=== PATIENT | male | born 1930 | race Caucasian/White ===

== ENCOUNTER 2017-04-20 18:15 | Inpatient (IN) | payer MEDICARE, OTHER ==
[~2017-04-20] VITALS: Ht 172.7 cm; Wt 84.3 kg
[~2017-04-20 18:15] MED LIST: ATOR40TA69 PO; LEVO75TA4 PO; LORA10CA PO; METF500T4 PO; OLOD4MIS2 INHALATION
[2017-04-20 18:26] VITALS: BP 157/59; PULSE 61; RESP 18; O2SAT 95
[2017-04-20 18:42] LABS: BASOPHILS % (AUTO) 0.4 % (0-3); EOSINOPHILS % (AUTO) 3.4 % (0-5); MONOCYTES % (AUTO) 10.2 % (4-12); Mean Corpuscular Hemoglobin 31.7 pg (27.0-35.0); Mean Corpuscular Volume 98.6 fL (81-100); NEUTROPHILS % (AUTO) 63.2 % (40-74); Platelet Count 161 bil/L (150-400)
[2017-04-20 19:03] LABS: Magnesium 2.1 mg/dL (1.6-2.6)
--- NOTE | 2017-04-20 19:09 | ED.REPORT ---
HPI-Dizziness / Weakness Date of Service Apr 20, 2017 ED Provider: Reginald Brewster PA-C Deven is an 87-year-old male with a history of dementia per old records presenting with a chief complaint of leg weakness. He reports that he took a nap this afternoon when he awoke he was unable to move due to weakness. Works at that time he felt numb in his legs and unable to stand. He is able to move around his house using his arms to move between chairs. Admits cough. Denies headache, vision changes, unilateral neurologic changes, fever, abdominal pain, vomiting. Denies bowel/bladder dysfunction, saddle anesthesia. Patient is a somewhat difficult historian. Nursing Notes Stated Complaint: WEAKNESS Chief Complaint: General Complaint Nursing Notes Reviewed: Yes Allergies: Coded Allergies: No Known Allergies (Unverified , 11/27/15) Scheduled Atorvastatin Calcium (Atorvastatin Calcium) 40 Mg Tablet 40 MG PO DAILY Levothyroxine (Levothyroxine) 75 Mcg Tablet 75 MCG PO DAILY Loratadine (Claritin) 10 Mg Capsule 10 MG PO DAILY Metformin (Metformin) 500 Mg Tablet 500 MG PO BID Olodaterol HCl (Striverdi Respimat) 4 Gm Mist.inhal 2 PUFF INHALATION DAILY General Time Seen by MD: 18:39 Chief Complaint Generalized weakness Past Medical History Past Medical History Dementia Hypertension Hypothyroidism Malignant neoplasm, prostate High cholesterol COPD, 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 Head: Atraumatic, normocephalic. Eyes: No scleral icterus or injection. No discharge. Vision grossly intact. ENT: Voice clear, hearing grossly intact. Respiratory: Clinically evident wet cough. Regular rate and rhythm. Mildly small stinson. No respiratory distress. Speaks in complete sentences. Cardiovascular: Regular rate and rhythm, without murmur, gallop or rub. No pedal edema. Gastrointestinal: Abdomen flat and non-tender without guarding or rebound. Bowel sounds normoactive. Skin: Warm and dry. Neurological: Hip flexion, knee extension, ankle dorsiflexion and plantarflexion strength 5/5 B/L. Patellar and Achilles reflexes present and equal B/L. Sensation to sharp touch intact at medial leg, dorsal foot and lateral foot B/L. negative seated straight leg raise, negative seated cross straight leg raise. Psychological: Alert and oriented. Speech appropriate, linear and logical. Behavior appropriate. Initial Vital Signs Vital Signs (First) Date Time Temp Pulse Resp B/P Pulse Ox O2 Delivery O2 Flow Rate FiO2 04/20/17 18:26 37.0 61 18 157/59 95 Room Air Interpretation & Diagnostics Lab Results Interpretation Result Diagram: 04/21/17 0530 04/21/17 0530 Test 04/20/17 18:20 04/20/17 19:06 04/20/17 19:35 Magnesium Level 2.1mg/dL (1.6-2.6) Pro-B-Type Natriuretic Peptide 287.5pg/mL (0-486) Lactic Acid Level 1.0mmol/L (0.4-2.0) Troponin T < 0.010ug/L (0.0-0.011) Urine Color Yellow (YELLOW) Urine Appearance Clear (CLEAR,HAZY) Urine pH 6.5 (5.0-8.0) Urine Specific [place] 1.020 (1.003-1.035) Urine Protein Negativemg/dL (NEG,TRACE) Urine Glucose (UA) Negativemg/dL (NEGATIVE) Urine Ketones Negativemg/dL (NEGATIVE) Urine Occult Blood Negative (NEGATIVE) Urine Nitrite Negative (NEGATIVE) Urine Bilirubin Negative (NEGATIVE) Urine Urobilinogen Normalmg/dL (NORMAL) Urine Leukocyte Esterase Negative (NEGATIVE) Urine RBC 0-2/hpf (0-2) Urine WBC 0-5/hpf (0-5) Urine Epithelial Cells Occasional/hpf (NONE-MOD) Urine Crystals None seen (NONE SEEN) Urine Bacteria None/hpf (NONE-FEW) Urine Hyaline Casts None/lpf (NONE) Urine Granular Casts None seen (NONE SEEN) Urine Waxy Casts None seen (NONE SEEN) Urine Red Blood Cell Casts None seen (NONE SEEN) Urine White Blood Cell Casts None seen (NONE SEEN) Urine Mucus None seen (None Seen) Urine Trichomonas None seen (NONE SEEN) Urine Yeast None (NONE SEEN) Urinalysis Comment None Urine Culture Reflexed Not indicated X-Ray Chest Interpretation Chest Xray Interpretation: PROCEDURE: X-RAY CHEST ONE VIEW ([id number]) INDICATIONS: 87 year-old male with productive cough. IMPRESSION: Patchy bibasilar airspace opacities again noted, and may represent chronic pulmonary scarring versus recurrent aspiration or early bronchopneumonia. Interpretation / Wet Read by: Interpret - Radiologist Re-Eval/Medical Decision Consultation : Referral / Consult Name: Kamilah Aguirre DO Consulted With: Hospitalist Information Assurance Manager: Accepts admit Patient Discharge & Departure Impression: Primary Impression: Pneumonia Pneumonia type: due to unspecified organism Laterality: right Lung location : lower lobe of lung Qualified Code: J18.1 - Lobar pneumonia, unspecified organism Additional Impression: Generalized weakness Disposition: ADMITTED TO HOSPITAL Referrals: NOPCP (PCP) EDSupervising Provider for APC: Hiro Parra MD Attending Statement I personally examined this patient and review the clinical data. 87-year-old male who lives alone and has generalized weakness of acute onset and persistent in the emergency department in spite of IV hydration. Chest x-ray to my interpretation suggests pneumonia, the patient is hemodynamically stable; not thought to be septic. He has been given IV fluids with gentle hydration normal saline 500 mL and Levaquin 750 mg IV. He will be admitted to hospitalist service. CODE STATUS was discussed with the patient. DO NOT RESUSCITATE Reginald Brewster PA-C Apr 20, 2017 19:09 Hiro Parra MD Apr 20, 2017 21:48 (NEGATIVE) Urine Nitrite Negative (NEGATIVE) Urine Bilirubin Negative (NEGATIVE) Urine Urobilinogen Normalmg/dL (NORMAL) Urine Leukocyte Esterase Negative (NEGATIVE) Urine RBC 0-2/hpf (0-2) Urine WBC 0-5/hpf (0-5) Urine Epithelial Cells Occasional/hpf (NONE-MOD) Urine Crystals None seen (NONE SEEN) Urine Bacteria None/hpf (NONE-FEW) Urine Hyaline Casts None/lpf (NONE) Urine Granular Casts None seen (NONE SEEN) Urine Waxy Casts None seen (NONE SEEN) Urine Red Blood Cell Casts None seen (NONE SEEN) Urine White Blood Cell Casts None seen (NONE SEEN) Urine Mucus None seen (None Seen) Urine Trichomonas None seen (NONE SEEN) Urine Yeast None (NONE SEEN) Urinalysis Comment None Urine Culture Reflexed Not indicated X-Ray Chest Interpretation Chest Xray Interpretation: PROCEDURE: X-RAY CHEST ONE VIEW ([id number]) INDICATIONS: 87 year-old male with productive cough. IMPRESSION: Patchy bibasilar airspace opacities again noted, and may represent chronic pulmonary scarring versus recurrent aspiration or early bronchopneumonia. Interpretation / Wet Read by: Interpret - Radiologist Re-Eval/Medical Decision Consultation : Referral / Consult Name: Kamilah Aguirre DO Consulted With: Hospitalist Information Assurance Manager: Accepts admit Patient Discharge & Departure Impression: Primary Impression: Pneumonia Pneumonia type: due to unspecified organism Laterality: right Lung location : lower lobe of lung Qualified Code: J18.1 - Lobar pneumonia, unspecified organism Additional Impression: Generalized weakness Disposition: ADMITTED TO HOSPITAL Referrals: NOPCP (PCP) Attending Statement I personally examined this patient and review the clinical data. 87-year-old male who lives alone and has generalized weakness of acute onset and persistent in the emergency department in spite of IV hydration. Chest x-ray to my interpretation suggests pneumonia, the patient is hemodynamically stable; not thought to be septic. He has been given IV fluids with gentle hydration normal saline 500 mL and Levaquin 750 mg IV. He will be admitted to hospitalist service. CODE STATUS was discussed with the patient. DO NOT RESUSCITATE Reginald Brewster PA-C Apr 20, 2017 19:09 Hiro Parra MD Apr 20, 2017 21:48
--- NOTE | 2017-04-20 19:46 | DRSVH ---
PROCEDURE: X-RAY CHEST ONE VIEW ([id number]) INDICATIONS: 87 year-old male with productive cough. TECHNIQUE: One view of the chest was acquired. COMPARISON: [facility], CR, XR CHEST 1VW (PORTABLE), 11/27/2015, 13:14. FINDINGS: Surgical changes and devices: None. Lungs and pleura: No pleural effusions or pneumothorax. Patchy bibasilar airspace opacities are agai n noted. Mediastinum: Mediastinal contours appear normal. Heart size is normal. There is aortic atheroscler osis. Bones and chest wall: No suspicious bony lesions. Overlying soft tissues appear unremarkable. IMPRESSION: Patchy bibasilar airspace opacities again noted, and may represent chronic pulmonary scar ring versus recurrent aspiration or early bronchopneumonia. Dictated by: Juan David Mckeon M.D. on 04/20/2017 at 19:44 Approved by: Juan David Mckeon M.D. on 04/20/2017 at 19:45
[2017-04-20 19:54] LABS: APPEARANCE,URINE CLEAR (CLEAR,HAZY); COLOR,URINE YELLOW (YELLOW); OCCULT BLOOD,URINE NEGATIVE (NEGATIVE); PH,URINE 6.5 (5.0-8.0); UROBILINOGEN,URINE NORMAL (NORMAL)
[2017-04-20] MEDS ORDERED: levoFLOXacin Inj 750 MG in IV Premix 1 EACH IV ONE (21:45)
[2017-04-20] MEDS ORDERED: 0.9% Sodium Chloride 500 ML IV ONE (21:45)
[2017-04-20 22:12] VITALS: BP 143/62; PULSE 61; RESP 16; O2SAT 95
--- NOTE | 2017-04-20 22:41 | PCM.HPMED ---
Subjective Date of Service Apr 20, 2017 Primary Provider: Admitting Physician: Kamilah Aguirre DO Primary Care Physician: Maricruz Attending Physician: Kamilah Aguirre DO Admit Status: From the Emergency Department Chief Complaint: Weakness History of Present Illness: 87-year-old male with history of dementia, hypertension, hypothyroidism, hyperlipidemia, COPD, history of TIAs, and type II diabetes presents to the emergency department due to increasing weakness over the last couple of days with at least one fall. Patient states that his recent fall was in the kitchen and is able to pick himself back up using the counter but overall he feels weaker and less steady on his feet. Patient lives alone and has no access to emergency care should he fall. Patient also complains of a cough that is high for a number of years, but denies COPD. Along with a cough he complains chronic sinusitis, sputum production at worse in the morning, but denies fevers , chills, nausea, vomiting, chest pain, or shortness of breath. Patient also denies coughing or choking when eating. Patient did smoke for 30 years. 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 In the emergency room the patient's labs are relatively benign except for hyperglycemia of 185. Urine was unremarkable. No leukocytosis or anemia. Chest x-ray shows patchy bibasilar airspace opacities which are chronic from previous films. Review of Systems: Complete review of systems performed; pertinent positives and negatives per history of present illness, all other systems reviewed and are negative Allergies Coded Allergies: No Known Allergies (Unverified , 11/27/15) Home Medications Atorvastatin Calcium (Atorvastatin Calcium) 40 Mg Tablet 40 MG PO DAILY Levothyroxine (Levothyroxine) 75 Mcg Tablet 75 MCG PO DAILY Loratadine (Claritin) 10 Mg Capsule 10 MG PO DAILY Metformin (Metformin) 500 Mg Tablet 500 MG PO BID Olodaterol HCl (Striverdi Respimat) 4 Gm Mist.inhal 2 PUFF INHALATION DAILY PMH Dementia Hypertension Hypothyroidism Malignant neoplasm, prostate High cholesterol COPD, on oxygen at night TIA Type II diabetes mellitus Chronic right shoulder pain Surgical History Unable to recall Family History Did not know parents well enough to know medical history. Social History Hx Alcohol Use: No Hx Substance Use: No Hx Tobacco Use: Yes (He used to smoke 1-2 packs a day for 30 years and quit 40 years ago.) Smoking Status: Former Smoker Exam Vital Signs Vital Sign - Last Date Time Temp Pulse Resp B/P Pulse Ox O2 Delivery O2 Flow Rate FiO2 04/20/17 22:12 61 16 143/62 95 Room Air 04/20/17 18:26 37.0 Exam General: Pleasant age-appropriate male in no acute distress HEENT: PERRLA, EOMI, nonicteric, membranes moist Lymph: No lymphadenopathy Cardio: Regular rate and rhythm no murmurs rubs or gallops Respiratory: CTA bilaterally, no wheezes, no crackles Abdomen: Soft, positive bowel sounds, nontender, nondistended Extremities: No edema, 3/5 strength, sensation intact Psych: Appropriate mood and affect Neuro: CN II through XII grossly intact, sensation intact throughout Skin: No rash Lab and Diagnostics Result Diagram: 04/20/17181904/20/171819 X-Rays, CTs and MRIs Chest x-ray IMPRESSION: Patchy bibasilar airspace opacities again noted, and may represent chronic pulmonary scarring versus recurrent aspiration or early bronchopneumonia. Dictated by: Juan David Mckeon M.D. on 04/20/2017 at 19:44 12-lead ECG irregular rate 50s Assessment & Plan 87-year-old male with multiple comorbidities who presents emergency department due to increasing weakness and falls at home. Weakness and unsteady gait; present on admission; ongoing -Patient's getting progressively weaker likely second to age-related decline however infection not ruled out -Question whether the patient has a UTI, however his urine did not meet specifications for culture, was negative for nitrites and leukocyte esterase -Possible early pneumonia on CXR, received levofloxacin in ED, will continue ceftriaxone / azithromycin, procalcitonin pending -Orthostatics in a.m. -Patient on bedrest -NPO until swallow screen by nursing Chronic COPD; present on admission; ongoing -Not currently with COPD exacerbation -Patient's chronic cough that is stable with sputum production worse in the morning -Patient is supposed to be on home O2 at night, although unknown if he is compliant with this -Continue home inhalers Type II diabetes; present on admission; ongoing -Last A1c was 6.9 in 2016 -Home medication: Metformin -We will continue metformin Hypertension-not on home medications Hypothyroidism-continue levothyroxine Hyperlipidemia-continue atorvastin Disposition: Patient is being admitted to inpatient status with expected length of stay greater than two midnights due to to severity of presentation, duration of treatment, and risks of adverse events disposition DO NOT RESUSCITATE/DO NOT INTUBATE Pain Evaluation: Adequate Pain Control VTE Prophylaxis Indicated: Contraindicated Resuscitation Status: DNR/DNI:Do Not Resuscitate/Intubate Attending Statement The patient was seen and examined together with house staff on 04/20/2017 and I agree with the history, exam and plan as outlined in the note above. Zbigniew Mar DO Apr 20, 2017 22:41 Kamilah Aguirre DO Apr 21, 2017 02:56
[2017-04-20] MEDS ORDERED: Polyethylene Glycol (PEG) 17 Gm Powder PO PRN (22:45)
[2017-04-20] MEDS ORDERED: Ondansetron 2 mg/mL 2 mL Inj IVPUSH PRN (22:45)
[2017-04-20] MEDS ORDERED: Alum-Mag Hydrox-Simeth 30 mL Suspension PO PRN (22:45)
[2017-04-20 23:20] VITALS: BP 143/62; PULSE 61; RESP 16; O2SAT 95
[2017-04-20 23:35] VITALS: BP 172/88; PULSE 76; RESP 21; O2SAT 95
[2017-04-21] VITALS (7 sets, daily range): BP systolic 137–166; BP diastolic 75–82; PULSE 52–78; RESP 18–20; O2SAT 92–96
--- NOTE | 2017-04-21 00:01 | NUR ---
Arrival to floor Arrived to [facility] from ED for pneumonia and generalized weakness. Pt is poor historian, hx dementia, no family around per pt. A/O to self and place. No c/o pain/N/V. Per ED attempted PT and pt failed, moderately decreased weakness to bilateral lower extremities. Per pt, baseline is normal walking with no assistive devices. Per ED pt possibly stopped taking home medications. Bedrest over night, betsy on. Pt on CPOX and Tele. Uses urinal in bed, reports incontinence, brief on pt.
[2017-04-21] MEDS ORDERED: Heparin 5,000 Unit/mL Inj SUBQ SCH (00:30)
--- NOTE | 2017-04-21 01:57 | NUR ---
BP/UO Pt BP elevated:172/88, P 76. Pt has attempted to urinate multiple times with approx 50cc UO, bladder scanned, residual of 573. Night hospitalist notified, ok to perform in/out straight catheter. No new orders as of now for BP. Addendum: 04/21/17 at 0249 by NICCI LAYTON RN 14G coude catheter inserted in/out- using sterile technique. pt tolerated very well stating "that didnt hurt near as bad as I thought it would." 450cc clear, nicci urine out.
--- NOTE | 2017-04-21 06:30 | NUR ---
Diet/Fluids Notified Night Resident that fluids, diet, and insulin have not been ordered yet for this pt. Pt is diabetic. Has antibiotics scheduled for this morning. No new orders at this time.
[2017-04-21] MEDS ORDERED: Glucose 40% Oral Gel 15 Gm Tube PO PRN (07:05)
[2017-04-21] MEDS ORDERED: 0.9% Sodium Chloride 250 ML ONE (07:55)
[2017-04-21] MEDS: Insulin LISPRO 300 Unit/3 mL Inj SUBQ SCH ×4 (08:00→21:29)
[2017-04-21] MEDS: cefTRIAXone Inj 1,000 MG in Dextrose 5% Minibag Plus 50 ML IV SCH (08:03)
[2017-04-21] MEDS: Azithromycin Inj 500 MG in Dextrose 5% w/Vial Mate 250 ML IV SCH (09:08)
--- NOTE | 2017-04-21 09:48 | NUR ---
Evaluation completed. Please go to "Notes" then click on "Assessments and Notes" (bottom left corner of screen). Then select appropriate discipline tab on top of screen.
[2017-04-21 10:36] LABS: BASOPHILS % (AUTO) 0.4 % (0-3); EOSINOPHILS % (AUTO) 3.1 % (0-5); MONOCYTES % (AUTO) 11.8 % (4-12); Mean Corpuscular Hemoglobin 31.7 pg (27.0-35.0); Mean Corpuscular Volume 98.5 fL (81-100); NEUTROPHILS % (AUTO) 60.4 % (40-74); Platelet Count 155 bil/L (150-400)
[2017-04-21] MEDS: 0.9% Sodium Chloride 1,000 ML IV SCH (14:29)
--- NOTE | 2017-04-21 15:03 | PCM.PNMED ---
Subjective Date of Service Apr 21, 2017 Subjective Pt says SOB has improved, currently on RA. Has not tried to ambulate yet. Denies any pain. Exam Vital Signs Vital Sign - Last Date Time Temp Pulse Resp B/P Pulse Ox O2 Delivery O2 Flow Rate FiO2 04/21/17 14:19 78 142/81 04/21/17 14:12 36.6 18 92 Room Air Intake and Output 04/20/17 04/20/17 04/21/17 Cumulative From/Thru 15:00 23:00 07:00 04/20/17 18:26 - 04/21/17 06:11 Intake Total 0 ml 0 ml Output Total 525 ml 525 ml Balance -525 ml -525 ml Intake Oral 0 ml 0 ml Output Urine Total 525 ml 525 ml # Bowel Movements 0 0 Exam General: Pleasant age-appropriate male in no acute distress HEENT: PERRLA, EOMI, nonicteric, membranes moist Lymph: No lymphadenopathy Cardio: Regular rate and rhythm no murmurs rubs or gallops Respiratory: CTA bilaterally, no wheezes, no crackles Abdomen: Soft, positive bowel sounds, nontender, nondistended Extremities: No edema, 3/5 strength, sensation intact Psych: Appropriate mood and affect Neuro: CN II through XII grossly intact, sensation intact throughout Skin: No rash IVs and Medications Medications Reviewed: Medications were reviewed in detail Lab and Diagnostics Result Diagram: 04/21/17 0530 04/21/17 0530 X-Rays, CTs and MRIs Chest x-ray IMPRESSION: Patchy bibasilar airspace opacities again noted, and may represent chronic pulmonary scarring versus recurrent aspiration or early bronchopneumonia. Dictated by: Juan David Mckeon M.D. on 04/20/2017 at 19:44 12-lead ECG irregular rate 50s Assessment & Plan 87-year-old male with multiple comorbidities who presents emergency department due to increasing weakness and falls at home with Chest X-Ray suggestive of possible Pneumonia. Weakness and unsteady gait; present on admission; ongoing -Patient's getting progressively weaker likely second to age-related decline however infection not ruled out -Question whether the patient has a UTI, however his urine did not meet specifications for culture, was negative for nitrites and leukocyte esterase -Possible early pneumonia on CXR, received levofloxacin in ED, will continue ceftriaxone / azithromycin, procalcitonin- 0.06. -Orthostatics in a.m. -HEAD OF HISTORY to see pt. Will get Physical Therapy to evaluate. Chronic COPD; present on admission; ongoing -Not currently with COPD exacerbation -Patient's chronic cough that is stable with sputum production worse in the morning -Patient is supposed to be on home O2 at night, although unknown if he is compliant with this. -Continue home inhalers Type II diabetes; present on admission; ongoing -Last A1c was 6.9 in 2016, -Home medication: Metformin, held. -Started SSI, monitor fingersticks. Hypertension-not on home medications, consider adding Magdaleno Inhibitor given diabetes. Hypothyroidism-continue levothyroxine Hyperlipidemia-continue atorvastin Disposition: Patient changed to Observation status with expected length of stay less than two midnights due to to severity of presentation, duration of treatment, and risks of adverse events disposition VTE Mechanical Devices: Intermittant Pneumatic CD Resuscitation Status: DNR/DNI:Do Not Resuscitate/Intubate Chester Beltran MD Apr 21, 2017 15:03
--- NOTE | 2017-04-21 16:15 | NUR ---
Case management Contacted by Tri with insurance verification. Pt registered with VA insurance, per Tri, not service connected, to [place] will not pay. Requests I speak with pt and find out if he wants to be billed under VA which would not cover admit or Medicare. Per Tri has active Medicare part B. I spoke with Pt, he wishes to be registered under Medicare. Registration notified.
--- NOTE | 2017-04-21 17:13 | NUR ---
Neuro/Activity Pt able to follow commands. A&Ox3 but forgetful, and attention span is short during conversations. DORAN. Vocational Training Instructor strength equal. Pupils equal and reactive. No facial droop noted. Denies numbness and tingling in extremities. States that he gets dizzy and light headed when standing, orthos negative. Pt is bradycardic, MD aware. Pt is impulsive and forgetful of why he is here and that he staying the night. Martha alarm on. Notified for the need of a sitter for pt safety to reduce the risk of falls. Call light within reach. Teaching done on falls and call light use. Bed down and locked. Pt does not remember the name of the pharmacy he uses. Pt does not remember his medical history.
--- NOTE | 2017-04-21 19:26 | NUR ---
Family Pt's niece Roxanne called today. Stated he has Alzheimer and lives alone in a trailer. States her sister is his POA, and she will have his sister call to give more information about the pts history and med req.
--- NOTE | 2017-04-21 20:08 | NUR ---
Case Management D: Attempted to explain observation status, pt not wanting to sign HARDY. RN documenting pt as A&O x3, but does have hx of dementia. Pt has POA, but name and number is not in chart. Per RN, pt's POA is supposed to come in tomorrow. I will attempt to speak with her then, or call if phone number is obtained. I would like to explain observation status and HARDY to her, also the pt's decision to have admission billed under Medicare since would not be covered under VA since not service connected.
[2017-04-22] VITALS (8 sets, daily range): BP systolic 121–162; BP diastolic 66–82; PULSE 55–71; RESP 16–19; O2SAT 94–96
[2017-04-22] MEDS: 0.9% Sodium Chloride 1,000 ML IV SCH (00:22)
--- NOTE | 2017-04-22 04:53 | NUR ---
activity/behavior pt has been impulsive and unsteady on his feet. he has had a sitter at bedside all night. he has been a one person assist to the [facility]. he gets up to urinate frequently and only voids small amounts at a time. bladder was scanned at bedtime and had a total of 250cc of urine seen. pt went 200cc shortly thereafter. he has at times said sexually inappropriate things to female staff. his female drain tiler sitter had to be replaced with a male TESTER WAFER SUBSTRATE to deescalate the situation. he has been alert and oriented x2 this shift. he has at times needed reminding this is hospital. and he has needed frequent reminding of why he can't go home. pts nikirby called and said she would be coming in today to discuss discharge planning. care continues. Addendum: 04/22/17 at 0636 by REBEKAH SHIN RN MD notified that as morning as progressed pt has become increasingly confused. he knows who he is and that he is at a hospital. he is confused on why he is here and who the staff are. he has become more verbally abusive to staff as well. he is harder to redirect this morning. sitter still at bedside.
--- NOTE | 2017-04-22 07:17 | NUR ---
urinary retention pt complained of pain when trying to urinate. Post void residual was 650. nurse did in and out cath and 750cc of urine was drained. pt said he had immediate relief from his discomfort.
[2017-04-22] MEDS: Insulin LISPRO 300 Unit/3 mL Inj SUBQ SCH ×4 (08:00→21:10)
[2017-04-22] MEDS: cefTRIAXone Inj 1,000 MG in Dextrose 5% Minibag Plus 50 ML IV SCH (08:48)
[2017-04-22] MEDS ORDERED: Labetalol 5 mg/mL 4 mL Inj IVPUSH PRN (10:55)
--- NOTE | 2017-04-22 11:10 | PCM.PNMED ---
Subjective Date of Service Apr 22, 2017 Subjective PT was agitated overnight and needed sitter. Pt has been dizzy with ambulation. Exam Vital Signs Vital Sign - Last Date Time Temp Pulse Resp B/P Pulse Ox O2 Delivery O2 Flow Rate FiO2 04/22/17 10:31 71 04/22/17 08:41 36.2 18 162/79 94 Room Air Intake and Output 04/21/17 04/21/17 04/22/17 Cumulative From/Thru 15:00 23:00 07:00 04/20/17 18:26 - 04/22/17 05:33 Intake Total 1040 ml 800 ml 1840 ml Output Total 850 ml 475 ml 1850 ml Balance 190 ml 325 ml -10 ml Intake Oral 1040 ml 800 ml 1840 ml Output Urine Total 850 ml 475 ml 1850 ml # Voids 3 3 # Bowel Movements 1 1 Exam General: AOX2-3. NAD. HEENT: PERRLA, EOMI, nonicteric, membranes moist, Lymph: No lymphadenopathy Cardio: Regular rate and rhythm no murmurs rubs or gallops Respiratory: CTA bilaterally, no wheezes, no crackles Abdomen: Soft, positive bowel sounds, nontender, nondistended Extremities: No edema, 3/5 strength, sensation intact Psych: Appropriate mood and affect Neuro: CN II through XII grossly intact, sensation intact throughout, Gait is unsteady, no pronator drift. No DDK. +Nystagmus. IVs and Medications Medications Reviewed: Medications were reviewed in detail Lab and Diagnostics Result Diagram: 04/21/17 0530 04/21/17 0530 X-Rays, CTs and MRIs Chest x-ray IMPRESSION: Patchy bibasilar airspace opacities again noted, and may represent chronic pulmonary scarring versus recurrent aspiration or early bronchopneumonia. Dictated by: Juan David Mckeon M.D. on 04/20/2017 at 19:44 12-lead ECG irregular rate 50s Assessment & Plan 87-year-old male with multiple comorbidities who presents emergency department due to increasing weakness and falls at home with Chest X-Ray suggestive of possible Pneumonia. Weakness and unsteady gait; present on admission; ongoing -Patient's getting progressively weaker likely second to age-related decline however infection not ruled out. PT noted nystagmus during session. [place]- Hallpike negative. Clinical picture of Posterior circulation stroke, will need to order stroke pathway and CTA Head/Neck, Carotids, Echo. Give dose ASA. - Ortho Vitals were negative. -Started on Stroke Pathway. 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 -PT noted nystagmus during session, concern for CVA. Bilateral Infiltrates- POA, active. - per CXR, treating for Community Acquired Pneumonia. Afebrile, No leukocytosis. -received levofloxacin in ED, will continue ceftriaxone / azithromycin, procalcitonin- 0.06 -Day 3 Ceftriaxone, Azithromycin to complete course. Can restart if febrile. F/ u Cultures. Chronic COPD; present on admission; ongoing -Not currently with COPD exacerbation -Patient's chronic cough that is stable with sputum production worse in the morning -Patient is supposed to be on home O2 at night, although unknown if he is compliant with this. -Continue home inhalers Type II diabetes; present on admission; ongoing -Last A1c was 6.9 in 2016, -Home medication: Metformin, held. -Started SSI, monitor fingersticks. Hypertension-not on home medications, consider adding Magdaleno Inhibitor given diabetes. Hypothyroidism-continue levothyroxine Hyperlipidemia-continue atorvastin Disposition: Pt meets Inpatient Criteria as ordinally noted on admitting H&P. Expected stay >2 midnights due to to severity of presentation, duration of treatment, and risks of adverse events disposition VTE Mechanical Devices: Intermittant Pneumatic CD Resuscitation Status: DNR/DNI:Do Not Resuscitate/Intubate Chester Beltran MD Apr 22, 2017 11:10
[2017-04-22] MEDS: Azithromycin Inj 500 MG in Dextrose 5% w/Vial Mate 250 ML IV SCH (11:28)
--- NOTE | 2017-04-22 13:30 | NUR ---
Inpatient status effective today. SHILOH signed by pt and his DPOA Melany who is at bedside. I did explain to Melany about the change to Medicare benefits from previously [facility]. She is in agreement with change.
--- NOTE | 2017-04-22 17:32 | NUR ---
Social Work: Initial Assessment/Multi-Disciplinary Rounds D: EMR reviewed. Please see Initial Assessment linked to this note for more information. Pt is an 87 y/o [place] on [place]22 ([place] status changed) pneumonia, generalized weakness per H&P. Pt has a readmit risk score of 2. ORTIZ met with pt and family at bedside to conduct initial assessment. Pt not an accurate historian at this time. SW completed assessment with pt's niece/DPOA Melany Ludwig [phone] and brother Carlo Lerma. SW explained role and wrote phone number on white board. SW provided "Your Discharge Planning Checklist" and encouraged pt to contact SW for any discharge planning questions. Pt's insurance is Medicare and PCP is Danyel Ware MD. Pt gave verbal consent to [phone] for discharge planning. DPOA/advanced directive obtained and SW placed a copy in pt's chart. Pt does not own or use any DME. Pt PLOF with ADLs was independent but family has great concerns about how the pt has been living and believes pt is at a point that he needs total assistance with ADLs. Pt was living alone in a trailer with no running water. SW asked if family was aware of pt's living environment prior to being admitted to the hospital - family stated they had no idea how bad his situation had become and are advocating for pt not to return home. Pt has dementia at baseline and after family went to his trailer when pt arrived to hospital, realized that his functioning has declined. Family states it is absolutely not safe for pt to be home alone any longer and have great concerns regarding pt's renewed drivers license. Family stated pt's mentation has declined and pt should not be driving. SW discussed family options for pt's discharge. SW confirmed that pt will be discharged when medically stable. SW discussed pt's finances. Family states that pt does not have enough money to cover costs for alternative housing. SW presented family with the following options: 1) If MD recommends SNF and pt has medical necessity, Medicare could cover SNF costs but only if pt meets 3-day stay - which will be determined by medical necessity. 2) Pt can return to a family members home to live and hire 24/7 caregiver + HH if deemed medically necessary and pt is homebound (senior resource guide provided). 3) Family can work together to determine if family can pay for Memory Care facility or private pay SNF (if pt doesn't meet 3-day stay). ORTIZ informed family that SNF may not be an option. ORTIZ encouraged family to have a family meeting. Family reported to have 5 family members involved and SADIE Mosley confirmed she will rally the family together to discuss alternative options. Melany requested that ORTIZ email her a list of options for pt both short term and medical terminologist. ORTIZ confirmed SW will email options but will not disclose any person information related to the pt. SW also confirmed with family that pt will not be able to return to trailer without running water. ORTIZ confirmed with family that SW will discuss pt's driving with MD and request MD contact DMV regarding license. Family agreeable. Pt discussed in multidisciplinary rounds. Per multidisciplinary rounds, pt is not medically stable for discharge home today - A: Pt's capacity for self-care assessed: Per family reports, pt does not have the capacity for self-care at this time. Pt's mentation has declined and pt has been living in a trailer without running water, not bathing himself, and driving. ORTIZ discussed this with MD and MD will consult DMV regarding pt's license. P: SW to email SADIE Mosley ([email or web address]) with options for pt moving forward. No personal information about pt will be disseminated via email. ORTIZ will email options/resources. Family to have meeting regarding pt's care and finances. ORTIZ discussed that if pt is medically clear for discharge and does not leave hospital, pt will receive a HIN letter and privately pay for hospital costs. Family agreeable to discharge planning and are extremely supportive. Family willing to work together to form care plan if pt does not qualify for SNF covered by insurance. ORTIZ will continue to follow. MD notified of discussion with family. GABRIELA Rodas Addendum: 08/05/17 at 1751 by SARA VEGA Amended: Links added.
--- NOTE | 2017-04-22 18:27 | NUR ---
Confusion Pt. has been oriented to self and place today, and he is aware of why he is here. He does not know the date or year, and is forgetful at times. He was much more appropriate during day shift than at urologist physician, and he no longer needs a sitter at this time. [place] alarm in place.
[2017-04-23] VITALS (11 sets, daily range): BP systolic 131–178; BP diastolic 64–80; PULSE 55–82; RESP 16–20; O2SAT 92–99
--- NOTE | 2017-04-23 04:41 | NUR ---
activity/urinary retention/behavior pt behavior has been much more appropriate this shift then prior night. he is alert and oriented to self and place and understands why he is in the hospital. he read the stroke education book and discussed with nurse his concerns and questions. he has had a sitter for most of the night because he does impulsively get out of bed without calling for help and is unsteady on his feet. he has been pleasant and cooperative with sitter. at 2345 nurse did a post void residual and found 360cc. pt was given the opportunity to get back on the commode to try and urinate but said he was unable to. nurse used an in and out cath at that time and drained 300cc of urine. he has been resting comfortably since then and has urinated a total of 250cc since then on his own. nurse will bladder scan again at 0600. bed in low position, call light within reach. care continues. Addendum: 04/23/17 at 0611 by REBEKAH SHIN RN pt PVR this AM is 250. will not straight cath at this time. will continue to monitor.
[2017-04-23] MEDS: Insulin LISPRO 300 Unit/3 mL Inj SUBQ SCH ×4 (08:00→22:00)
--- NOTE | 2017-04-23 09:16 | DRSVH ---
PROCEDURE: CT ANGIO HEAD AND NECK (P) INDICATIONS: R/O Carotid Disease TECHNIQUE: Pre-contrast 4.5 mm thick sections acquired from the foramen magnum to the vertex. After the adminis tration of intravenous contrast, 1 mm thick sections acquired from the aortic arch through the [place]. Post-contrast 4.5 mm thick sections then re-acquired from the foramen magnum to the vert ex. 3-dimensional uodkmli-lwefjxcby-qdgjjpygvi (MIP) and/or volume rendering reformats were acquired of the central intracranial vasculature and neck separately. For radiation dose reduction, the foll owing was used: automated exposure control, adjustment of mA and/or kV according to patient size. COMPARISON: None. FINDINGS: Image quality: Good BRAIN: CSF spaces: Ventricles are normal in shape. There is generalized enlargement of the ventricles ciste rns and sulci from mild to moderate atrophic change. Basal cisterns are patent. No extra-axial flui d collections. Brain: No midline shift. No intracranial bleeds or masses. Nelson-white matter interface appears int act. Skull and face: Calvarium and facial bones appear intact, without suspicious lesions. Orbits appear normal. Sinuses: Sinuses and mastoids are clear. HEAD CT ANGIOGRAPHY: Anterior circulation: Intracranial internal carotid arteries are normal in size and flow. The flow within the paired anterior cerebral arteries is normal and symmetric. The flow within the middle cer ebral arteries is normal and symmetric. The anterior communicating artery is seen. No aneurysms are seen. Posterior circulation: Visualized portions of the vertebral arteries demonstrate atherosclerotic pia cification but with less than 50% diameter stenosis near their distal endsand join to form a normal a ppearing basilar artery. Flow within the posterior cerebral arteries is normal and symmetric. No an eurysms are seen. NECK CT ANGIOGRAPHY: Carotid system: The great vessels demonstrate a conventional anatomy as they arise from the aortic a rch. The origins of the common carotid arteries appear patent. Atherosclerotic plaquing is present a less than 50% diameter stenosis The common carotid arteries demonstrate normal courses. The distal common carotid arteries and origins of the internal and external carotid arteries show atheroscleroti c plaquing. The right is thought to be just less than 50% diameter stenosis in the left probably just more than 50% diameter stenosis at the bifurcation and origin of the internal carotid arteries. Beyo nd this the internal carotid arteries demonstrate normal calibers and courses. Posterior circulation: The origins of the vertebral arteries both appear widely patent. The more romo perior extracranial portions of both vertebral arteries also demonstrate normal courses and calibers. They join to form a normal appearing basilar artery. Soft tissues: Visualized neck soft tissues demonstrate no suspicious abnormalities. Bones: No suspicious bony lesions. Visualized cervical spine appears normally aligned. IMPRESSION: 1. Probably less than 50% diameter stenosis at the origin of the right internal carotid artery and li taylor greater than 50% diameter stenosis at the origin of the left internal carotid artery. Carotid ul trasound is suggested to evaluate for more accurate physiologic stenosis evaluation. 2. No significant stenosis greater than 50% is seen of the distal internal carotid arteries or any of the intracranial vessels. 3. Probably less than 50% diameter stenosis at the origin of both vertebral arteries. 4. Atrophic changes intracranially. No evidence for old or acute stroke or hemorrhagic change. Dictated by: Fernando Mireles M.D. on 04/23/2017 at 9:03 Approved by: Fernando Mireles M.D. on 04/23/2017 at 9:14
[2017-04-23] MEDS: Albuterol-Ipratropium 3 mL Inhalation Solution NEB PRN ×2 (09:27→21:13)
--- NOTE | 2017-04-23 14:17 | PCM.PNMED ---
Subjective Date of Service Apr 23, 2017 Exam Vital Signs Vital Sign - Last Date Time Temp Pulse Resp B/P Pulse Ox O2 Delivery O2 Flow Rate FiO2 04/23/17 12:45 36.8 77 18 178/67 92 Room Air Intake and Output 04/22/17 04/22/17 04/23/17 Cumulative From/Thru 15:00 23:00 07:00 04/20/17 18:26 - 04/23/17 06:05 Intake Total 1087 ml 300 ml 3227 ml Output Total 850 ml 900 ml 3600 ml Balance 237 ml -600 ml -373 ml Intake Oral 637 ml 300 ml 2777 ml IV Total 450 ml 450 ml Output Urine Total 850 ml 900 ml 3600 ml # Voids 3 # Bowel Movements 0 2 3 Exam General: AOX2-3. NAD. HEENT: PERRLA, EOMI, nonicteric, membranes moist, Lymph: No lymphadenopathy Cardio: Regular rate and rhythm no murmurs rubs or gallops Respiratory: CTA bilaterally, no wheezes, no crackles Abdomen: Soft, positive bowel sounds, nontender, nondistended Extremities: No edema, 3/5 strength, sensation intact Psych: Appropriate mood and affect Neuro: CN II through XII grossly intact, sensation intact throughout, Gait is unsteady, no pronator drift. IVs and Medications Medications Reviewed: Medications were reviewed in detail Lab and Diagnostics Result Diagram: 04/21/17 0530 04/21/17 0530 X-Rays, CTs and MRIs 04/23/[address] ANGIO HEAD AND NECK Carotid system: The great vessels demonstrate a conventional anatomy as they arise from the aortic arch. The origins of the common carotid arteries 1. Probably less than 50% diameter stenosis at the origin of the right internal carotid artery and likely greater than 50% diameter stenosis at the origin of the left internal carotid artery. Carotid ultrasound is suggested to evaluate for more accurate physiologic stenosis evaluation. 2. No significant stenosis greater than 50% is seen of the distal internal carotid arteries or any of the intracranial vessels. 3. Probably less than 50% diameter stenosis at the origin of both vertebral arteries. 4. Atrophic changes intracranially. No evidence for old or acute stroke or hemorrhagic [place] Chest x-ray IMPRESSION: Patchy bibasilar airspace opacities again noted, and may represent chronic pulmonary scarring versus recurrent aspiration or early bronchopneumonia. Dictated by: Juan David Mckeon M.D. on 04/20/2017 at 19:44 12-lead ECG irregular rate 50s Assessment & Plan 87-year-old male with multiple comorbidities who presents emergency department due to increasing weakness and falls at home with Chest X-Ray suggestive of possible Pneumonia. Weakness and unsteady gait; present on admission; ongoing - May be deconditioning. Clinical picture of Posterior circulation deficit. Consider CVA or Posterior Vertebrobasilar Insufficiency - PT noted nystagmus during session. [place]-Hallpike negative. Ortho Vitals were negative. - Started Stroke Pathway. - CTA Head/Neck- No acute infarct noted. Probably less than 50% diameter stenosis at the origin of the right internal carotid artery and likely greater than 50% diameter stenosis at the origin of the left internal carotid artery. No distal stenosis. -Carotids US- pending. -Echo- pending. -Started new med ASA. 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 -PT noted nystagmus during initial session. 04/23-PT recommending D/C to SNF with PT/OT services at this time but will continue to monitor with potential for home with HHPT if gait with AD improves over next few visits. Bilateral Infiltrates- POA, active. - per CXR, treating for Community Acquired Pneumonia. Afebrile, No leukocytosis. procalcitonin- 0.06 -received levofloxacin in ED, continued ceftriaxone / azithromycin. -Complete antibiotics 5 day course 04/24. Can continue if evidence of systemic infection. Chronic COPD; present on admission; ongoing -Not currently with COPD exacerbation -Patient's chronic cough that is stable with sputum production worse in the morning -Patient is supposed to be on home O2 at night, although unknown if he is compliant with this. -Continue home inhalers, started Duoneb prn. Type II diabetes; present on admission; ongoing -Last A1c was 6.9 in 2016, -Home medication: Metformin, held. -Started SSI, monitor fingersticks. Hypertension-not on home medications, consider adding Magdaleno Inhibitor given diabetes. Hypothyroidism-continue levothyroxine Hyperlipidemia-continue atorvastin Disposition: Pt meets Inpatient Criteria as ordinally noted on admitting H&P. Expected stay >2 midnights due to to severity of presentation, duration of treatment, and risks of adverse events disposition VTE Prophylaxis: Sub-Q Heparin (Unfractionated) VTE Mechanical Devices: Intermittant Pneumatic CD Resuscitation Status: DNR/DNI:Do Not Resuscitate/Intubate Chester Beltran MD Apr 23, 2017 14:17
--- NOTE | 2017-04-23 14:53 | DRSVH ---
[facility] [address] [place] [address] Echocardiogram Report Name: ANUSHA GREENBERG CStudy Date: 04/23/2017 Height: 68 in Hospital Exam Location: [facility] Weight: 187 lb Gender: Male BSA: 2.0 m2 : 1930 Age: 87 yrs BP: 151/64 mm Hg Reason For Study: R/O CVA Ordering Physician: HOSPITALIST [facility] Performed By: Melody Hunter Referring Physician: [facility] Interpretation Summary The study quality was technically difficult. The left ventricle is grossly normal size. Proximal septal thickening is noted. There is no significant left ventricular outflow tract obstruction. Left ventricular ejection fraction is estimated to be 70 +/- 5%. The right ventricle grossly appears normal in size with probable normal systolic function. The aortic valve is not well visualized. The aortic valve is moderately calcified. Leaflet mobility is moderate to severely reduced. The peak aortic velocity is 2.59 m/sec. The aortic valve mean gradient is 14 mmHg. Based on peak aortic valve velocity and mean gradient aortic stenosis is not critical, however if clinical suspicion is high for severe , consider FABY for better evaluation of aortic valve. There is no LV thrombus. Procedure: A two-dimensional transthoracic echocardiogram with color flow and Doppler was performed. The study quality was technically difficult. There is no prior echocardiogram noted for this patient. The bubble study componet of the test was unable to be completed due to patient discomfort and suboptimal echocardiographic imaging windows. The patient was in normal sinus rhythm during the exam. Left Ventricle: The left ventricle is grossly normal size. Proximal septal thickening is noted. There is no echo evidence for significant left ventricular outflow tract obstruction. There is no thrombus. Left ventricular ejection fraction is estimated to be 70 +/- 5%. Septal motion is consistent with conduction abnormality. E/A reversal with abnormal E/E' ratio(16.87). Right Ventricle: The right ventricle grossly appears normal in size with probable normal systolic function. Atria: The left atrium is moderately dilated. The right atrium is mildly dilated. The interatrial septum is intact with no evidence for an atrial septal defect. Mitral Valve: The mitral valve leaflets appear mildly thickened, but open well. There is moderate to severe mitral annular calcification. The mitral valve leaflets are mildly calcified. No significant mitral valve stenosis. There is trace mitral regurgitation. Aortic Valve: The aortic valve is not well visualized. The aortic valve is moderately calcified. Leaflet mobility is moderate to severely reduced. The peak aortic velocity is 2.59 m/sec. The aortic valve mean gradient is 14 mmHg. No aortic regurgitation is present. Tricuspid Valve: The tricuspid valve is not well visualized, but is grossly normal. There is trace tricuspid regurgitation. Pulmonary artery pressures cannot be estimated because of the lack of a measurable TR jet velocity. Pulmonic Valve: The pulmonic valve is not well visualized. Great Vessels: The aortic root is normal size. The ascending aorta could not be visualized. The aortic arch could not be visualized. The IVC is of normal diameter and collapses less than 50% with a sniff. This suggests a right atrial pressure of 8 mm Hg. Pericardium/ Pleura There is an anterior echo-free space consistent with a fat pad. There is no pericardial effusion. There is no pleural effusion. MMode/2D Measurements & Calculations RA long axis: 4.9 cm LVOT diam: 2.2 cm LA A2 area: 25.8 cm LA A4 area: 25.4 cm RA area: 12.0 cm LA length (vol): 6.3 cm RA vol: 25.1 ml LA vol: 88.6 ml RA : 12.6 ml/m2 LA vol index: 44.6 ml/m IVC diam: 1.8 cm Doppler Measurements & Calculations Ao V2 max MV E max amol MV E/A: 0.98 MV dec time : 259.4 cm/sec : 89.0 cm/sec Med Peak E' Amol : 0.24 sec Ao max PG MV A max amol : 26.9 mmHg : 91.1 cm/sec E/E' med: 19.3 Ao mean PG Lat Peak E' Amol : 14.0 mmHg LVOT Max Amol E/E' lat: 15.0 : 86.7 cm/sec E/e' average: 17.1 LEXIE(I,D): 1.3 cm sev ratio: 0.35 Ao V2 mean LV V1 max PG LEXIE indexed to BSA : 167.5 cm/sec (cm^2/m^2): 0.64 Ao V2 VTI: 55.9 cm LV V1 VTI: 19.5 cm LEXIE(V,D): 1.2 cm2 Reading Physician:FIORELLA
[2017-04-23] MEDS: Heparin 5,000 Unit/mL Inj SUBQ SCH (15:46)
--- NOTE | 2017-04-23 18:17 | NUR ---
Urination Pt alert and oriented to self and place only. Urination hard to assess today, due to increased incontinence today, nursing will continue to monitor. Pt had 3 episodes of incontinence, bladder scan performed and obtained 150ml. Pt anxious this afternoon after discussion with MD regarding drivers license being revoked. Discussed with pt that he will have other resources available to him, which eased some of his anxiety.
[2017-04-24] VITALS (12 sets, daily range): BP systolic 122–171; BP diastolic 52–76; PULSE 54–70; RESP 18–20; O2SAT 92–99
[2017-04-24] MEDS: Heparin 5,000 Unit/mL Inj SUBQ SCH ×3 (01:27→16:51)
--- NOTE | 2017-04-24 06:32 | NUR ---
Incontinence/ Bladder Scan Pt incontinent through shift- briefs weighed to calculate output. Pt able to void 100 at 0630, bladder scan for 418 and straight cath resulted in 220 out. Pt states sensation to void he just 'cannot go any more'. He discussed his amish/marriage plans with staff and made inappropriate jokes about his nickname. No physical interactions were inappropriate, and he was reminded to be respectful of staff by the charge nurse. Pt states he needs to get out of here and get to [facility] so that he can get better. No Chest pain, some SOB this shift and given PRN breathing treatment by RT. Upper airway is audible ronchi, experitory wheezes throughout.
[2017-04-24] MEDS: Insulin LISPRO 300 Unit/3 mL Inj SUBQ SCH ×4 (07:00→22:00)
[2017-04-24] MEDS: Albuterol-Ipratropium 3 mL Inhalation Solution NEB PRN ×2 (07:42→15:55)
[2017-04-24 08:40] LABS: BASOPHILS % (AUTO) 0.5 % (0-3); EOSINOPHILS % (AUTO) 5.1 % (0-5); MONOCYTES % (AUTO) 9.8 % (4-12); Mean Corpuscular Hemoglobin 32.2 pg (27.0-35.0); NEUTROPHILS % (AUTO) 60.3 % (40-74); Platelet Count 147 bil/L (150-400)
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
--- NOTE | 2017-04-24 16:22 | PCM.PNMED ---
Subjective Date of Service Apr 24, 2017 Subjective Denies any new complaints. 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 He says Dr. Beltran told him he was planning to revoke his driving privilege! Exam Vital Signs Vital Sign - Last Date Time Temp Pulse Resp B/P Pulse Ox O2 Delivery O2 Flow Rate FiO2 04/24/17 15:55 64 20 94 Room Air 04/24/17 12:47 36.4 150/70 Intake and Output 04/23/17 04/23/17 04/24/17 Cumulative From/Thru 15:00 23:00 07:00 04/20/17 18:26 - 04/24/17 06:57 Intake Total 802 ml 320 ml 4349 ml Output Total 400 ml 851 ml 4851 ml Balance 402 ml -531 ml -502 ml Intake Oral 802 ml 320 ml 3899 ml IV Total 450 ml Output Urine Total 400 ml 851 ml 4851 ml # Voids 6 6 15 # Bowel Movements 0 0 3 General: Alert, Oriented X3, Cooperative, No Acute Distress Head: Normal Eyes: Scleral Anicteric Nose: Mucous Membr Moist/[place] Mouth: Mucous Membr Moist/[place] Neck: Supple Chest & Lungs: Chest Wall Normal, Clear to auscultation & percussion Cardiovascular: Regular Rate/Rhythm Pulses: NL carotid, radial, femoral, DP, PT Abdomen: Non-tender, Non-distended, Normoactive bowel tones, Soft Extremities: No cyanosis/clubbing/edma bilat Neurological: Grossly Neurologically Intact, Normal Speech IVs and Medications Medications Reviewed: Medications were reviewed in detail Lab and Diagnostics Result Diagram: 04/24/1782404/24/17 0825 X-Rays, CTs and MRIs 04/23/[address] ANGIO HEAD AND NECK Carotid system: The great vessels demonstrate a conventional anatomy as they arise from the aortic arch. The origins of the common carotid arteries 1. Probably less than 50% diameter stenosis at the origin of the right internal carotid artery and likely greater than 50% diameter stenosis at the origin of the left internal carotid artery. Carotid ultrasound is suggested to evaluate for more accurate physiologic stenosis evaluation. 2. No significant stenosis greater than 50% is seen of the distal internal carotid arteries or any of the intracranial vessels. 3. Probably less than 50% diameter stenosis at the origin of both vertebral arteries. 4. Atrophic changes intracranially. No evidence for old or acute stroke or hemorrhagic dumont Chest x-ray IMPRESSION: Patchy bibasilar airspace opacities again noted, and may represent chronic pulmonary scarring versus recurrent aspiration or early bronchopneumonia. Dictated by: Juan David Mckeon M.D. on 04/20/2017 at 19:44 12-lead ECG irregular rate 50s Assessment & Plan 87-year-old male with history of Hypertension, Hypothyroidism, prostate neoplasm , COPD, on oxygen at night, TIA, Type II diabetes mellitus presents due to increasing weakness and falls at home # Acute generalized weakness and unsteady gait; present on admission. Improving - CTA Head/Neck- No acute infarct or significant stenosis noted - Neuro exam today is fairly non-focal - Not clear to me why CTA was chosen instead of MRI - Echo unremarkable as noted above - Started new med ASA. - APPLICATION DEVELOPMENT TEAM LEAD- noted dysphagia, rec pureed for now, will follow up. - PT noted nystagmus during initial session. Followup with recs - Consider MRI brain if unsteady gait persist # Acute community acquired pneumonia per earlier notes, present on admission. - Clinically highly doubt bacterial pneumonia given no fever/chills, leukocytosis, and with negative procalcitonin - Received levofloxacin in ED and continued ceftriaxone / azithromycin. - Stop all antibiotics and followup # Chronic COPD with possible acute exacerbation, present on admission; ongoing - Patient is supposed to be on home O2 at night, although unknown if he is compliant with this. - Continue home inhalers - Start Nebs # Type II diabetes; present on admission; ongoing - HgA1C 6.7 - Home medication: Metformin, held. - Continue ISS, monitor fingersticks. # History of Hypertension. Ongoing and poorly controlled - Not on home medications - Start low dose Lisinopril # Chronic Hypothyroidism - Continue levothyroxine # Hyperlipidemia - Continue Atorvastin Dispo: Likely SNF in 1-2 days VTE Prophylaxis: Sub-Q Heparin (Unfractionated) VTE Mechanical Devices: Intermittant Pneumatic CD Resuscitation Status: DNR/DNI:Do Not Resuscitate/Intubate Yon Reagan Apr 24, 2017 16:22
--- NOTE | 2017-04-24 16:44 | NUR ---
Social Work: Continued Discharge Planning D: EMR reviewed. Pt is on day 4 of hospitalization. SW received MD order for SNF placement. SW to follow-up with pt's DPOA and provide choice list. Please see prior SW notes. Pt admitted inpt on 04/22 and will meet 3-day inpt stay for Medicare coverage. Pt anticipated to discharge 1-2 days. A: Pt for whom a SNF is medically necessary P: SW to follow-up with pt's DPOA and provide SNF choice list. SW to make referral to SNF once choice determined. SW will continue to follow. GABRIELA Rodas
--- NOTE | 2017-04-24 19:13 | NUR ---
UOP Post void residuals done this shift with highest amount being 234ml. Pt did c/o sob after working with PT. Slight unsteady gait. RT called for treatment. paged regarding weight gain of 5kg and unsteady gait Orders for MRI with contrast of head d/t unsteady gait. MD ordered to restart thyroid med and bp med tomorrow AM. Also ordered for home respiratory med. Pt remains impulsive with betsy in place. Usually is already on the BSC by the time you get to the bedalarm. Care conts
[2017-04-24] MEDS: Arformoterol 15 mCg/2 mL Inhalation Solution NEB SCH (22:32)
--- NOTE | 2017-04-24 23:17 | NUR ---
Off unit for MRI
[2017-04-25] VITALS (9 sets, daily range): BP systolic 127–189; BP diastolic 70–79; PULSE 61–90; RESP 18–20; O2SAT 91–95
--- NOTE | 2017-04-25 00:16 | NUR ---
Return to OSC from MRI
[2017-04-25] MEDS: Heparin 5,000 Unit/mL Inj SUBQ SCH ×3 (00:44→15:52)
--- NOTE | 2017-04-25 02:20 | NUR ---
MRI results / activity Radiology reports MRI results of R acute lacunar infarct at 0200, NOC hospitalist paged. Pt has been awake all of this shift, impulsive to bedside commode, looking for papers in room, coughing and blowing nose. Wearing CPOX saturation maintained >88%, coughing and increase in mucus after HS breathing treatment. Voiding frequently, Post void residual have been 310, 210. Care continues
--- NOTE | 2017-04-25 05:11 | NUR ---
PVR Pt is alert and responsive with baseline confusion and able to make needs known. Denies pain, resp distress and/or SOB. 95% on RA at this current and sleeping soundly. Increased impulsiveness and urinary frequency through this shift. Able to void, LN helped with toileting and bladder scan maintained under 310cc so far. No In and out cath. Will continue to monitor.
[2017-04-25] MEDS: Insulin LISPRO 300 Unit/3 mL Inj SUBQ SCH ×4 (07:55→22:00)
--- NOTE | 2017-04-25 08:56 | DRSVH ---
PROCEDURE: MRI BRAIN WITHOUT CONTRAST ([id number]) INDICATIONS: unsteady gait TECHNIQUE: Non-contrast axial T1 spin echo, axial T2 fast spin echo, sagittal and axial FLAIR, coronal T2 fast s pin echo, axial gradient echo, axial diffusion and ADC through the brain. COMPARISON: None. FINDINGS: Image quality: Good CSF spaces: Ventricles appear symmetric in size and shape. Basal cisterns are patent. No extra-axi al fluid collections. Brain: No intracranial bleeds or mass effects. There is cerebral volume loss for age. There are pe riventricular and deep white matter chronic small vessel ischemic changes. There is a punctate, appro ximately 5 mm area of abnormal signal bright on diffusion and dark on ADC and showing minimal flair a nd T2 consistent with a small subacute ischemic infarct in the right basal ganglia. Brainstem appear s normal. Diffusion-weighted images show no acute ischemic insults. No chronic ischemic insults. N ormal intravascular flow voids are present. Skull and face: Calvarial bone marrow is normal in signal. Orbits are normal. The there is noted t o be a 2.4 cm cystic structure with a fluid/fluid level and a small nodule. The nodule is medial and CT of the 04/23/17 show some enhancement. This is just next to the anterior and superior aspect of the left parotid gland. Sinuses: Sinuses and mastoids are clear. IMPRESSION: 1. 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 2. Incidental cystic lesion with enhancing nodule on recent CT scan arising from or just next to the anterosuperior aspect of the left parotid gland. Dictated by: Fernando Mireles M.D. on 04/25/2017 at 8:48 this report corresponds to the findings of the preliminary NSR report. Approved by: Fernando Mireles M.D. on 04/25/2017 at 8:55
[2017-04-25] MEDS: Arformoterol 15 mCg/2 mL Inhalation Solution NEB SCH (09:00)
[2017-04-25] MEDS: Albuterol-Ipratropium 3 mL Inhalation Solution NEB PRN (09:07)
--- NOTE | 2017-04-25 13:22 | NUR ---
Social Work- Continued D/C Planning Data: EMR reviewed. Pt is on day 5 of hospitalization for pneumonia, generalized weakness per H&P. Pt discussed in multidisciplinary rounds, pt has confirmed CVA. Pt has ambulated 250 feet with pt but requires assistance for safety and balance training to higher level of functioning. SW followed up with pt and family for SNF placement. T/T pt's DPOA Melany Ludwig per H&P. SNF order explained. Melany has disc pad knockout worker with SNF and has no preference for her uncles placement at this time. Melany and TEXTILE TECHNOLOGIST discussed keno terminal operator care planning. It is unknown how much money pt has in the bank- Melany does not have any access to pt's financial information at this time. She thinks that it is not very much because patient recently wrote a check that bounced. Melany continues to state that she is not able to provide care for her uncle as she is relocating. She confirms that no family will be willing to assist pt either. Melany is considering placing pt in assisted living in the future, but Melany states that he doesn't have the money for private pay placement and she is not financially able to assist with placement. SW discussed [facility] Supplement and directed Melany to [facility] website for more information. SW discussed the potential of respite beds at an assisted living facility to provide pt with a safe d/c plan if he is unable to go to SNF. Melany was unsure of pt's financial resources to pay the $150-$250 per day. Melany declined assisting pt financially at this time. Melany is obviously overwhelmed regarding this situation and is unsure what would be feasible if pt is not able to go to rehabilitation and return to independence. T/T pt at bedside regarding d/c plan. Pt was able to identify the month, day, and his location. Pt became confused related to the year, stating that it was 1916 but also realizing that this would not be accurate. Throughout this conversation, information and portions of our conversation were repeated multiple times. Pt spoke randomly about different experiences he has had, including experiences with the [employer] and his time in the war. The reliability of pt's information is questionable. Pt clearly understands SNF recommendation for rehabilitation secondary to stroke, talked extensively about how the MD had spoken to him about it. Pt is agreeable to plan. SW provided pt with SNF CHOICE LIST, pt has chosen [facility] as his choice as it is closest to [place]. CAR DUMPER OPERATOR HELPER requested to make referral to [facility] for consideration. SW discussed pt's living situation with pt. Per pt, he has been living independently in a trailer in [place] and collecting rain water or drawing water from a well for use and bathing. Pt reports purchasing food and bottled water from [employer]. Pt confirms that he receives $971 monthly to use for living expenses. When asked about savings, pt stated that he "wouldn't tell you where it is, I don't want to talk about that." When TEXTILE TECHNOLOGIST rephrased the question to ask if savings existed, pt confirmed that it does exist but did not elaborate. Pt states that he is motivated to return home after his rehabilitation at SNF. SW discussed what assistance might be needed keno terminal operator for pt. Pt is agreeable that he needs assistance and did not completely decline hiring someone to assist him in the trailer, depending on cost. It is unclear how much pt would have available to him in savings or to use for a caregiver in the future. ORTIZ continues to follow. Assessment: Pt for whom SNF is medically necessary secondary to CVA. Plan: Referral made to [facility] Paperwork in chart. PASRR to be completed and faxed. ORTIZ will continue to follow. GABRIELA Matos
--- NOTE | 2017-04-25 15:19 | NUR ---
PENITENTIARY TRANSFER: Gave access and faxed facesheet to [facility] per WIRE SPLICER
--- NOTE | 2017-04-25 15:43 | PCM.PNMED ---
Subjective Date of Service Apr 25, 2017 Subjective Denies any new complaints. Exam Vital Signs Vital Sign - Last Date Time Temp Pulse Resp B/P Pulse Ox O2 Delivery O2 Flow Rate FiO2 04/25/17 13:23 Room Air 04/25/17 12:33 36.6 81 20 127/70 93 Intake and Output 04/24/17 04/24/17 04/25/17 Cumulative From/Thru 15:00 23:00 07:00 04/20/17 18:26 - 04/25/17 07:00 Intake Total 1508 ml 0 ml 5857 ml Output Total 900 ml 880 ml 6631 ml Balance 608 ml -880 ml -774 ml Intake Oral 1508 ml 0 ml 5407 ml IV Total 450 ml Output Urine Total 900 ml 880 ml 6631 ml # Voids 1 16 # Bowel Movements 1 4 Exam General: Alert, Cooperative, No Acute Distress Head: Normal Eyes: Scleral Anicteric Nose: Mucous Membr Moist/[place] Mouth: Mucous Membr Moist/[place] Neck: Supple Chest & Lungs: Chest Wall Normal, moderate bilateral wheezing Cardiovascular: Regular Rate/Rhythm Pulses: NL DP, PT Abdomen: Non-tender, Non-distended, Normoactive bowel tones, Soft Extremities: No cyanosis/clubbing/edema bilat Neurological: Grossly Neurologically Intact, Normal Speech IVs and Medications Medications Reviewed: Medications were reviewed in detail Lab and Diagnostics Result Diagram: 04/24/17 0825 04/24/17 0825 X-Rays, CTs and MRIs 04/23/[address] ANGIO HEAD AND NECK Carotid system: The great vessels demonstrate a conventional anatomy as they arise from the aortic arch. The origins of the common carotid arteries 1. Probably less than 50% diameter stenosis at the origin of the right internal carotid artery and likely greater than 50% diameter stenosis at the origin of the left internal carotid artery. Carotid ultrasound is suggested to evaluate for more accurate physiologic stenosis evaluation. 2. No significant stenosis greater than 50% is seen of the distal internal carotid arteries or any of the intracranial vessels. 3. Probably less than 50% diameter stenosis at the origin of both vertebral arteries. 4. Atrophic changes intracranially. No evidence for old or acute stroke or hemorrhagic dumont Chest x-ray IMPRESSION: Patchy bibasilar airspace opacities again noted, and may represent chronic pulmonary scarring versus recurrent aspiration or early bronchopneumonia. Dictated by: Juan David Mckeon M.D. on 04/20/2017 at 19:44 Date of Service: 04/24/17 1627 PROCEDURE: MRI BRAIN WITHOUT CONTRAST ([id number]) IMPRESSION: 1. 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 2. Incidental cystic lesion with enhancing nodule on recent CT scan arising from or just next to the anterosuperior aspect of the left parotid gland. Dictated by: Fernando Mireles M.D. on 04/25/2017 at 8:48 this report corresponds to the findings of the preliminary NSR report. Approved by: Fernando Mireles M.D. on 04/25/2017 at 8:55 12-lead ECG irregular rate 50s Assessment & Plan 87-year-old male with history of Hypertension, Hypothyroidism, prostate neoplasm , COPD, on oxygen at night, TIA, Type II diabetes mellitus presents due to increasing weakness and falls at home # Acute generalized weakness and unsteady gait; present on admission. Improving - MRI brain on 04/24 showing: "Small focal ischemic infarct subacute right basal ganglia." - Echo unremarkable as noted above - Started new med ASA. - Continue with Lipitor - KRAFT DIGESTER OPERATOR- noted dysphagia, rec pureed for now, will follow up. - PT noted nystagmus during initial session. Followup with recs - OT consult # Acute community acquired pneumonia per earlier notes, present on admission. - Clinically highly doubt bacterial pneumonia given no fever/chills, leukocytosis, and with negative procalcitonin - Received levofloxacin in ED and continued ceftriaxone / azithromycin. - Stopped all antibiotics on 04/24. Followup # Chronic COPD with possible acute exacerbation, present on admission; ongoing - Patient is supposed to be on home O2 at night, although he says he has not been using O2 supplement for years now. - Continue home inhalers - Continue with Nebs (will change to standing dose) # Type II diabetes; present on admission; ongoing - HgA1C 6.7 - Home medication: Metformin, held. - Continue ISS, monitor fingersticks. # History of Hypertension. Ongoing and poorly controlled - Not on home medications - Start low dose Lisinopril # Chronic Hypothyroidism - Continue levothyroxine # Hyperlipidemia - Continue Atorvastin Dispo: Likely SNF in 1-2 days VTE Prophylaxis: Sub-Q Heparin (Unfractionated) VTE Mechanical Devices: Intermittant Pneumatic CD Resuscitation Status: DNR/DNI:Do Not Resuscitate/Intubate Yon Reagan Apr 25, 2017 15:43
[2017-04-25] MEDS: Albuterol-Ipratropium 3 mL Inhalation Solution NEB SCH (16:00)
--- NOTE | 2017-04-25 16:49 | NUR ---
Activity Pt has been up and oob for meals. Tolerating activity well. Pt up to [facility] SBA for safety. Pt has used the call light several times today, but is still impulsive and gets oob on his own. Pt is up to commode frequently to urinate. PVR done twice during the shift without meeting parameters to straight cath. Pt has no c/o abdominal discomfort or distention. Pt educated on using the call light and asking staff for help. [place] alarm is on for pt safety.
[2017-04-26] VITALS (7 sets, daily range): BP systolic 119–149; BP diastolic 61–69; PULSE 56–92; RESP 18–20; O2SAT 92–97
[2017-04-26] MEDS: Albuterol-Ipratropium 3 mL Inhalation Solution NEB SCH ×3 (00:06→13:03)
[2017-04-26] MEDS: Arformoterol 15 mCg/2 mL Inhalation Solution NEB SCH ×2 (00:06→07:43)
[2017-04-26] MEDS: Heparin 5,000 Unit/mL Inj SUBQ SCH ×2 (00:38→08:25)
--- NOTE | 2017-04-26 04:11 | NUR ---
Neuro/ Urinary frequency Pt is alert and oriented to self with baseline confusion. No changes in LOC. Denies N/V/D, pain, resp distress and/or SOB. Aware that he is going to be discharged soon. Continue with urinary urgency and frequency. Denies dysuria or burning sensation with urinating. PVR 277 and 217. Able to void. No straight cath on this shift so far. Will continue to monitor.
[2017-04-26] MEDS: Insulin LISPRO 300 Unit/3 mL Inj SUBQ SCH ×2 (08:00→11:59)
--- NOTE | 2017-04-26 09:43 | NUR ---
Evaluation completed. Please go to "Notes" then click on "Assessments and Notes" (bottom left corner of screen). Then select appropriate discipline tab on top of screen.
--- NOTE | 2017-04-26 11:12 | NUR ---
[facility] TRANSFER : Spoke with Mariana at [facility] and they can accept patient today with to follow, they will transport patient at 1330. Paged MD and requested orders to be done with summary. Updated CONTINGENTS SUPERVISOR
[2017-04-26] MEDS ORDERED: ASPI325T32 PO (11:33)
[2017-04-26] MEDS ORDERED: LISI-567 PO (11:33)
[2017-04-26] MEDS ORDERED: TAMS0.4C98 PO (11:33)
--- NOTE | 2017-04-26 11:38 | PCM.DIMED ---
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 Present on admission. # Acute generalized weakness and unsteady gait; present on admission. Likely due to stroke noted above. Improving # Suspected acute community acquired pneumonia on admission. Clinically ruled out. # Chronic COPD with acute exacerbation, not present on admission. Improved. # Chronic Type II diabetes; present on admission. Stable. - HgA1C 6.7 # History of Hypertension. Better controlled after adjustment of medications. # Chronic Hypothyroidism # History of Hyperlipidemia Diet Discharge Diet: Low fat, Low Sodium, Heart Healthy, Diabetic Activity Discharge Activity: Other (as tolerated and per physical therapy) Call your provider Call your provider for: Fever or Chills, Shortness of breath, Bleeding, Chest pain, Weakness (unilateral) Patient Instructions Patient Instructions Seek immediate medical attention if any new or worsening signs or symptoms occur. Follow-up plan 1. Followup with primary care provider in 7-10 days Yon Reagan Apr 26, 2017 11:38
--- NOTE | 2017-04-26 11:41 | NUR ---
Social Work: Readiness for Discharge D: Pt discussed in am rounds. pt is likely medically stable for discharge. Pt was referred to [facility] this morning. Per Counterintelligence Analyst they can accept the patient today with Dr. Don to follow. HISTORY FACULTY MEMBER met with the patient at bedside to confirm discharge plan. Pt is pleasantly confused but agreeable to going to [facility]. HISTORY FACULTY MEMBER spoke with pt's OSCAR Ludwig ([phone]) to notify her of the plan for discharge. She agrees that the pt requires skilled rehab and that she will be in touch with them to start long-term care planning while the patient completes rehab. powered bridge specialist has alerted MD of this information; discharge orders will be written. Tentative transportation arranged for 1:30 pm PASSR Completed. A: Pt who will require ongoing rehab for continued strengthening and functional mobility improvement. P: Anticipate pt to discharge to [facility] today with Dr. Don to follow. GABRIELA Ramsey
--- NOTE | 2017-04-26 11:51 | PCM.DC.MED ---
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 Present on admission. # Acute generalized weakness and unsteady gait; present on admission. Likely due to stroke noted above. Improving # Suspected acute community acquired pneumonia on admission. Clinically ruled out. # Chronic COPD with acute exacerbation, not present on admission. Improved. # Chronic Type II diabetes; present on admission. Stable. - HgA1C 6.7 # History of Hypertension. Better controlled after adjustment of medications. # Chronic Hypothyroidism # History of Hyperlipidemia Procedures XRay, CTs & MRIs 04/23/[address] ANGIO HEAD AND NECK Carotid system: The great vessels demonstrate a conventional anatomy as they arise from the aortic arch. The origins of the common carotid arteries 1. Probably less than 50% diameter stenosis at the origin of the right internal carotid artery and likely greater than 50% diameter stenosis at the origin of the left internal carotid artery. Carotid ultrasound is suggested to evaluate for more accurate physiologic stenosis evaluation. 2. No significant stenosis greater than 50% is seen of the distal internal carotid arteries or any of the intracranial vessels. 3. Probably less than 50% diameter stenosis at the origin of both vertebral arteries. 4. Atrophic changes intracranially. No evidence for old or acute stroke or hemorrhagic dumont Chest x-ray IMPRESSION: Patchy bibasilar airspace opacities again noted, and may represent chronic pulmonary scarring versus recurrent aspiration or early bronchopneumonia. Dictated by: Juan David Mckeon M.D. on 04/20/2017 at 19:44 Date of Service: 04/24/17 1627 PROCEDURE: MRI BRAIN WITHOUT CONTRAST ([id number]) IMPRESSION: 1. 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 2. Incidental cystic lesion with enhancing nodule on recent CT scan arising from or just next to the anterosuperior aspect of the left parotid gland. Dictated by: Fernando Mireles M.D. on 04/25/2017 at 8:48 this report corresponds to the findings of the preliminary NSR report. Approved by: Fernando Mireles M.D. on 04/25/2017 at 8:55 Brief History As noted in H&P by Dr. Mar: 87-year-old male with history of dementia, hypertension, hypothyroidism, hyperlipidemia, COPD, history of TIAs, and type II diabetes presents to the emergency department due to increasing weakness over the last couple of days with at least one fall. Patient states that his recent fall was in the kitchen and is able to pick himself back up using the counter but overall he feels weaker and less steady on his feet. Patient lives alone and has no access to emergency care should he fall. Patient also complains of a cough that is high for a number of years, but denies COPD. Along with a cough he complains chronic sinusitis, sputum production at worse in the morning, but denies fevers , chills, nausea, vomiting, chest pain, or shortness of breath. Patient also denies coughing or choking when eating. Patient did smoke for 30 years. 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 In the emergency room the patient's labs are relatively benign except for hyperglycemia of 185. Urine was unremarkable. No leukocytosis or anemia. Chest x-ray shows patchy bibasilar airspace opacities which are chronic from previous films. Hospital Course # Acute generalized weakness and unsteady gait; present on admission. 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 - Continue with Lipitor # Suspected acute community acquired pneumonia per earlier notes on admission. Clinically ruled out now. - Clinically highly doubt bacterial pneumonia given no fever/chills, leukocytosis, and with negative procalcitonin - Received levofloxacin in ED and continued ceftriaxone / azithromycin. - Stopped all antibiotics on 04/24/17 # Chronic COPD with possible acute exacerbation not present on admission. Acute exacerbation seems resolved. - Patient is supposed to be on home O2 at night, although he says he has not been using O2 supplement for years now. - Continue home inhalers - Continued with Nebs during this hospital as well. # Type II diabetes; present on admission; ongoing - HgA1C 6.7 - Home medication: Metformin, held during this hospital but will resume on discharge. # History of Hypertension. Ongoing and poorly controlled on admission but improved after adjusting meds. - Started Lisinopril during this hospital. # Chronic Hypothyroidism - Continued Levothyroxine # Hyperlipidemia - Continued Atorvastin by day of discharge denies any SOB, CP, lightheaded or dizziness. No focal weakness or numbness Exam Vital Signs (Last) Date Time Temp Pulse Resp B/P Pulse Ox O2 Delivery O2 Flow Rate FiO2 04/26/17 09:22 62 04/26/17 08:21 37.1 18 149/65 97 Nasal Cannula 2.00 Exam General: Alert, Cooperative, No Acute Distress Head: Normal Eyes: Scleral Anicteric Nose: Mucous Membr Moist/[place] Mouth: Mucous Membr Moist/[place] Neck: Supple Chest & Lungs: Chest Wall Normal, mild bilateral wheezing Cardiovascular: Regular Rate/Rhythm Pulses: NL DP, PT Abdomen: Non-tender, Non-distended, Normoactive bowel tones, Soft Extremities: No cyanosis/clubbing/edema bilat Neurological: Grossly Neurologically Intact, Normal Speech Test 04/20/17 18:20 04/20/17 19:06 04/20/17 19:35 04/20/17 23:21 Pro-B-Type Natriuretic Peptide 287.5pg/mL (0-486) Lactic Acid Level 1.0mmol/L (0.4-2.0) Troponin T < 0.010ug/L (0.0-0.011) Urine Color Yellow (YELLOW) Urine Appearance Clear (CLEAR,HAZY) Urine pH 6.5 (5.0-8.0) Urine Specific [place] 1.020 (1.003-1.035) Urine Protein Negativemg/dL (NEG,TRACE) Urine Glucose (UA) Negativemg/dL (NEGATIVE) Urine Ketones Negativemg/dL (NEGATIVE) Urine Occult Blood Negative (NEGATIVE) Urine Nitrite Negative (NEGATIVE) Urine Bilirubin Negative (NEGATIVE) Urine Urobilinogen Normalmg/dL (NORMAL) Urine Leukocyte Esterase Negative (NEGATIVE) Urine RBC 0-2/hpf (0-2) Urine WBC 0-5/hpf (0-5) Urine Epithelial Cells Occasional/hpf (NONE-MOD) Urine Crystals None seen (NONE SEEN) Urine Bacteria None/hpf (NONE-FEW) Urine Hyaline Casts None/lpf (NONE) Urine Granular Casts None seen (NONE SEEN) Urine Waxy Casts None seen (NONE SEEN) Urine Red Blood Cell Casts None seen (NONE SEEN) Urine White Blood Cell Casts None seen (NONE SEEN) Urine Mucus None seen (None Seen) Urine Trichomonas None seen (NONE SEEN) Urine Yeast None (NONE SEEN) Urinalysis Comment None Urine Culture Reflexed Not indicated Hold Urine Received (Received) Test 04/21/17 05:30 04/22/17 11:15 04/24/17 08:25 Hold Purple Top Tube Received (Received) Total Bilirubin 1.0mg/dL (0.0-1.2) Aspartate Amino Transf (AST/SGOT) 13U/L (0-50) Alanine Aminotransferase (ALT/SGPT) 9U/L (0-44) Alkaline Phosphatase 69U/L (25-160) Total Protein 6.1g/dL (6.4-8.4) Albumin 3.7g/dL (3.4-5.0) Thyroid Stimulating Hormone (TSH) 3.910uIU/mL (0.450-4.500) Hold Ellerbe Top Tube Received (Received) Hemoglobin A1c 6.7% (4.8-5.6) Triglycerides Level 145mg/dL (0-149) Cholesterol Level 148mg/dL (100-199) LDL Cholesterol, Calculated 83.000mg/dL (0-99) VLDL Cholesterol 29.000mg/dL HDL Cholesterol 36mg/dL (>39) Cholesterol/HDL Ratio 4.11 (0.0-4.4) White Blood Count 7.3th/mm3 (3.8-10.1) Red Blood Count 3.97mil/mm3 (4.40-5.80) Hemoglobin 12.8g/dL (13.8-17.2) Hematocrit 39.3% (41.0-50.0) Mean Corpuscular Volume 99.0fL (81-100) Mean Corpuscular Hemoglobin 32.2pg (27.0-35.0) Mean Corpuscular Hemoglobin Concent 32.6% (32.0-37.0) Red Cell Distribution Width 14.7% (12.3-15.4) Platelet Count 147bil/L (150-400) Neutrophils (%) (Auto) 60.3% (40-74) Lymphocytes (%) (Auto) 24.0% (14-46) Monocytes (%) (Auto) 9.8% (4-12) Eosinophils (%) (Auto) 5.1% (0-5) Basophils (%) (Auto) 0.5% (0-3) Sodium Level 140mEq/L (134-144) Potassium Level 3.7mEq/L (3.5-5.2) Chloride Level 102mEq/L (97-108) Carbon Dioxide Level 22mmol/L (18-29) Blood Urea Nitrogen 16mg/dL (8-27) Creatinine 1.09mg/dL (0.76-1.27) Estimat Glomerular Filtration Rate 68mL/min (>59) Glucose Level 143mg/dL (60-99) Calcium Level 9.1mg/dL (8.5-10.1) Magnesium Level 2.0mg/dL (1.6-2.6) Procalcitonin 0.06ng/mL (0.00-0.08) Discharge Medications Discharge Medications Aspirin (Aspirin) 325 Mg Tablet 325 MG PO DAILY Prescribed by: YON CAGLE MD Atorvastatin Calcium (Atorvastatin Calcium) 40 Mg Tablet 40 MG PO DAILY ( Reported) Levothyroxine (Levothyroxine) 75 Mcg Tablet 75 MCG PO DAILY (Reported) Lisinopril (Lisinopril) 20 Mg Tablet 20 MG PO DAILY Prescribed by: YON CAGLE MD Loratadine (Claritin) 10 Mg Capsule 10 MG PO DAILY (Reported) Metformin (Metformin) 500 Mg Tablet 500 MG PO BID (Reported) Olodaterol HCl (Striverdi Respimat) 4 Gm Mist.inhal 2 PUFF INHALATION DAILY ( Reported) Tamsulosin (Flomax) 0.4 Mg Capsule 0.4 MG PO DAILY Prescribed by: YON CAGLE MD Followup Plan Disposition: [facility] Follow-up plan 1. Followup with primary care provider in 7-10 days Discharge Diet: Low fat, Low Sodium, Heart Healthy, Diabetic Discharge Activity: Other (as tolerated and per physical therapy) Patient Instructions Seek immediate medical attention if any new or worsening signs or symptoms occur. Follow-up Provider: Kwabena Don MD, Masoud Apr 26, 2017 11:51
--- NOTE | 2017-04-26 12:22 | NUR ---
Social Work: Discharge D: has finalized discharge orders for discharge to SNF. Discharge ppw, PASSR and prescriptions faxed to Mariana at [facility]. CRIME SPECIALIST confirmed receipt of fax with Florentino. He will be here at 1330 to pickup. Bedside RN, patient and family all aware of plan and pickup time. A: Pt who will discharge to skilled rehab P: Pt to discharge to [facility] with Dr. Don to follow. Pickup at 1330. GABRIELA Ramsey
--- NOTE | 2017-04-26 13:44 | NUR ---
Discharge Pt d/c'd to [facility]. Report called to RN at [facility]. Pt removed IV and tele. Pt has all belongings. No items in the safe or pharmacy.
== END 2017-04-26 13:35 | DRG 65 ==
LOC: SED 18:15 → EDUNIT# 18:15 → EDBD 18:15 → OBSVTOIN 22:19 → OSC 22:19
PROVIDERS: ADMIT Internal Medicine; ATTEND Internal Medicine
DX: I63.9 Cerebral infarction, unspecified (principal); J44.1 Chronic obstructive pulmonary disease with (acute) exacerbation; F03.90 Unspecified dementia, unspecified severity, without behavioral disturbance, psychotic disturbance, mood disturbance, and anxiety; E03.9 Hypothyroidism, unspecified; E11.9 Type 2 diabetes mellitus without complications; Z66 Do not resuscitate; E78.5 Hyperlipidemia, unspecified; R29.6 Repeated falls; R13.10 Dysphagia, unspecified; R27.0 Ataxia, unspecified; I10 Essential (primary) hypertension; R40.2142 Coma scale, eyes open, spontaneous, at arrival to emergency department; R40.2362 Coma scale, best motor response, obeys commands, at arrival to emergency department; R40.2252 Coma scale, best verbal response, oriented, at arrival to emergency department; Z85.46 Personal history of malignant neoplasm of prostate; Z79.84 Long term (current) use of oral hypoglycemic drugs